=== PATIENT | male | born 1955 | race Caucasian/White ===

== ENCOUNTER 2018-06-30 07:31 | Inpatient (IN) ==
[2018-06-30] MEDS ORDERED: Sod Chloride 0.9% Inj 1,000 ML IV.SIG ONE (07:45)
[2018-06-30] MEDS ORDERED: Morphine Inj 4 MG/ML Vial IV.PUSH ONE (07:45)
--- NOTE | 2018-06-30 07:51 | ED ---
HPI General Chief Complaint: Abdominal Pain Stated Complaint: upper abd pain x 1 day Time Seen by Provider: 06/30/18 07:42 Source: patient Mode of arrival: ambulatory Limitations: no limitations History of Present Illness HPI narrative: Patient is a 63-year-old male with history of hypertension, hyperlipidemia as well as diabetes; presents to the emergency room with complaints of epigastric to right upper quadrant abdominal pain. Patient reports that pain began around 8 PM after he had had 2 whopper sandwiches for dinner. Reports that he has been feeling nauseous with no episodes of vomiting , no constipation or diarrhea. Patient reports that pain has been persistent and unrelenting, nothing makes pain better or worse. Patient with no fever or chills, no chest pain or shortness of breath. Patient reports that he has had abdominal surgeries in the past, reports history of colon resection for colon cancer MD complaint: abdominal pain Onset (ago): hour(s) Pain Consistency: constant Location: RUQ and epigastric Severity: moderate Severity scale (1-10): 6 Quality: cramping and aching Radiation: RUQ Migration to: RUQ Relieving factors: nothing Exacerbating factors: nothing Associated symptoms: nausea Related Data Home Medications Medication Instructions Recorded Confirmed aspirin [Aspirin Low Dose] 81 mg PO DAILY 06/30/18 06/30/18 empagliflozin [Jardiance] 25 mg PO DAILY 06/30/18 06/30/18 glimepiride 1 mg PO QAM 06/30/18 06/30/18 metformin 1 tab PO DAILY 06/30/18 06/30/18 rosuvastatin 10 mg PO DAILY 06/30/18 06/30/18 tamsulosin 0.4 mg PO DAILY 06/30/18 06/30/18 Allergies Allergy/AdvReac Type Severity Reaction Status Date / Time No Known Allergies Allergy Unverified 06/30/18 07:39 Review of Systems ROS: all other systems reviewed are negative [facility] Medical History Medical History Diabetes (Acute) History of colon cancer (Acute) Hypertension (Acute) Surgical History Surgical History History of colon resection (Acute) Social History Social History Substance History: No History of Abuse Second Hand Smoke Exposure: No Smoking Status: Never smoker How Often Do You Have a Drink Containing Alcohol: Never Recent Travel in [facility] within the Last 8 Weeks: No Recent Out of Country Travel within the Last 8 Weeks: No Exam Narrative Exam Narrative: GENERAL: Moderate distress SKIN: Focused skin assessment warm/dry. HEAD: Atraumatic. Normocephalic. EYES: Pupils equal and round. No scleral icterus. No injection or drainage. ENT: No nasal bleeding or discharge. Mucous membranes pink and moist. NECK: Trachea midline. No JVD. CARDIOVASCULAR: Regular rate and rhythm. No murmur appreciated. RESPIRATORY: No accessory muscle use. Clear to auscultation. Breath sounds equal bilaterally. GASTROINTESTINAL: Abdomen soft, tenderness to epigastrium to RUQ with no rebound or guarding, nondistended. Hepatic and splenic margins not palpable. MUSCULOSKELETAL: No obvious deformities. No clubbing. No cyanosis. No edema. NEUROLOGICAL: Awake and alert. No obvious cranial nerve deficits. Motor grossly within normal limits. Normal speech. PSYCHIATRIC: Appropriate mood and affect; insight and judgment normal. Course Initial Documented Vital Signs Temperature 97.6 F 06/30/18 07:36 Pulse Rate 81 06/30/18 07:36 Respiratory Rate 16 06/30/18 07:36 Blood Pressure 164/82 H 06/30/18 07:36 Pulse Oximetry 96 06/30/18 07:36 Last Documented Vital Signs Temperature 97.6 F 06/30/18 07:36 Pulse Rate 76 06/30/18 08:16 Respiratory Rate 16 06/30/18 07:36 Blood Pressure 164/82 H 06/30/18 07:36 Pulse Oximetry 98 06/30/18 08:16 Medical Decision Making MDM Narrative Medical decision making narrative: During the course of the patients emergency department visit, the patients history, examination, and differential diagnosis were reviewed with the patient. The patient was placed on a residential monitor with oximetry and frequent blood pressure monitoring. The patient had an IV access obtained and blood work sent for analysis. The patient was initially provided IVF, IV morphine as well as IV zofran RUQ US with no significant or acute abnormalities - patient is feeling better but is tired from taking morphine, ct of abdomen/pelvis ordered to further evaluate possible etiology of patient's abdominal pain. CT the abdomen and pelvis shows nonspecific distention of multiple mid small bowel loops and stool-like material within the distal distended segment. There are multiple air-fluid levels seen within the small bowel loops. There is a smoothly tapered transition zone within the distal small bowel but no abrupt transition point. Differential diagnosis includes early or partial obstruction. Patient still is uncomfortable while in the emergency room, he is in a lot of pain, I did reorder him another dose of morphine as the initial dose of morphine did seem to help him. Plan to admit him to the hospital for partial small bowel obstruction. Of note, patient's surgeon is Dr. Barakat, he performed the colon resection in [address] Wolfe who accepts pt to service Medical Screen Exam Complete: Yes Emergency Medical Condition: Yes Differential Diagnosis Differential Diagnosis: Pancreatitis, cholecystitis, GERD, ACS, electrolyte abnormality, gastritis, gastroenteritis, SBO, colitis Medical Records Medical records reviewed: Yes I reviewed the patient's medical records. Lab Data Lab results reviewed: Yes I reviewed the patient's lab results. Result diagrams: 06/30/18 08:02 06/30/18 08:02 Lab Results 06/30/18 06/30/18 06/30/18 Range/Units 08:02 08:02 08:02 CBC w Diff Auto diff final WBC 10.3 (4.0-11.0) th/mm3 RBC 5.77 (4.50-5.90) mil/mm3 Hgb 17.0 (13.0-17.0) gm/dL Hct 51.7 H (39.0-51.0) % MCV 89.6 (80.0-100.0) fL MCH 29.4 (27.0-34.0) pg MCHC 32.8 (32.0-36.0) % RDW 12.3 (11.6-17.2) % Plt Count 159 (150-450) th/mm3 MPV 8.9 (7.0-11.0) fL Neut % (Auto) 91.8 H (16.0-70.0) % Lymph % (Auto) 3.5 L (9.0-44.0) % Meigs % (Auto) 3.0 (0.0-8.0) % Eos % (Auto) 0.1 (0.0-4.0) % Baso % (Auto) 1.6 (0.0-2.0) % Neut # (Auto) 9.4 H (1.8-7.7) th/mm3 Lymph # (Auto) 0.4 L (1.0-4.8) th/mm3 Meigs # (Auto) 0.3 (0.0-0.9) th/mm3 Eos # (Auto) 0.0 (0.0-0.4) th/mm3 Baso # (Auto) 0.2 (0.0-0.2) th/mm3 WBC Differential . Differential Comment . PT 11.0 (9.8-11.6) sec INR 1.1 Ratio APTT 19.0 L (24.3-30.1) sec Sodium 141 (136-145) meq/L Potassium 4.3 (3.5-5.1) meq/L Chloride 104 (98-107) meq/L Carbon Dioxide 26.3 (21.0-32.0) meq/L Anion Gap 11 (5-15) meq/L BUN 29 H (7-18) mg/dL Creatinine 1.30 (0.60-1.30) mg/dL Estimated GFR 55 L (>89) mL/min Random Glucose 170 H (74-106) mg/dL Calcium 9.7 (8.5-10.1) mg/dL Total Bilirubin 0.7 (0.2-1.0) mg/dL AST 25 (15-37) U/L ALT 31 (12-78) U/L Alkaline Phosphatase 71 (45-117) U/L Total Protein 7.9 (6.4-8.2) g/dL Albumin 4.2 (3.4-5.0) g/dL Lipase 98 (73-393) U/L Ur Collection Type Urine Color (Yellw/Straw) Urine Clarity (Clear) Urine pH (5.0-8.5) Ur Specific [place] (1.002-1.035) Urine Protein (Neg-Trace) mg/dL Urine Glucose (UA) (Negative) mg/dL Urine Ketones (Negative) mg/dL Urine Occult Blood (Negative) Urine Nitrate (Negative) Urine Bilirubin (Negative) Urine Urobilinogen (Less than 2) mg/dL Ur Leukocyte Esterase (Negative) Urine RBC (0-3) /hpf Ur Squamous Epith Cells (0-5) /hpf Micro UA Comment Ur Microscopic Review Urine Culture Comments 06/30/18 Range/Units 10:45 CBC w Diff WBC (4.0-11.0) th/mm3 RBC (4.50-5.90) mil/mm3 Hgb (13.0-17.0) gm/dL Hct (39.0-51.0) % MCV (80.0-100.0) fL MCH (27.0-34.0) pg MCHC (32.0-36.0) % RDW (11.6-17.2) % Plt Count (150-450) th/mm3 MPV (7.0-11.0) fL Neut % (Auto) (16.0-70.0) % Lymph % (Auto) (9.0-44.0) % [place] % (Auto) (0.0-8.0) % Eos % (Auto) (0.0-4.0) % Baso % (Auto) (0.0-2.0) % Neut # (Auto) (1.8-7.7) th/mm3 Lymph # (Auto) (1.0-4.8) th/mm3 Meigs # (Auto) (0.0-0.9) th/mm3 Eos # (Auto) (0.0-0.4) th/mm3 Baso # (Auto) (0.0-0.2) th/mm3 WBC Differential Differential Comment PT (9.8-11.6) sec INR Ratio APTT (24.3-30.1) sec Sodium (136-145) meq/L Potassium (3.5-5.1) meq/L Chloride (98-107) meq/L Carbon Dioxide (21.0-32.0) meq/L Anion Gap (5-15) meq/L BUN (7-18) mg/dL Creatinine (0.60-1.30) mg/dL Estimated GFR (>89) mL/min Random Glucose (74-106) mg/dL Calcium (8.5-10.1) mg/dL Total Bilirubin (0.2-1.0) mg/dL AST (15-37) U/L ALT (12-78) U/L Alkaline Phosphatase (45-117) U/L Total Protein (6.4-8.2) g/dL Albumin (3.4-5.0) g/dL Lipase (73-393) U/L Ur Collection Type Clean catch Urine Color Yellow (Yellw/Straw) Urine Clarity Clear (Clear) Urine pH 5.5 (5.0-8.5) Ur Specific [place] 1.020 (1.002-1.035) Urine Protein Trace (Neg-Trace) mg/dL Urine Glucose (UA) 1000 or greater H (Negative) mg/dL Urine Ketones 40 H (Negative) mg/dL Urine Occult Blood Negative (Negative) Urine Nitrate Negative (Negative) Urine Bilirubin Negative (Negative) Urine Urobilinogen 0.2 (Less than 2) mg/dL Ur Leukocyte Esterase Negative (Negative) Urine RBC 0-3 (0-3) /hpf Ur Squamous Epith Cells 0-5 (0-5) /hpf Micro UA Comment Culture not ind Ur Microscopic Review Microscopic reviewed Urine Culture Comments Culture not ind Imaging Data Attestation: I personally reviewed and interpreted this imaging study as follows : Radiologist's impression: Chest X-Ray 06/30/18 07:45 CONCLUSION: COPD Left upper lobe density characteristic of calcification along the first rib. No evidence of acute airspace disease. Gallbladder Ultrasound 06/30/18 07:45 CONCLUSION: No significant or acute abnormality identified. Abdomen/Pelvis CT 06/30/18 09:46 CONCLUSION: 1. Nonspecific distention of multiple mid small bowel loops and stool-like material within the distal distended segment. Multiple air-fluid levels also seen within the distended small bowel loops. There is a smoothly tapered transition zone with the distal small bowel but no abrupt transition point. Differential diagnosis includes partial or early obstruction. 2. Atherosclerotic disease of the aorta. 3. Small amount of free fluid in the pelvis. ECG Data EKG Prior to Arrival: No Attestation: I personally reviewed and interpreted this ECG as follows: Interpretation: EKG at 0807: NSR at 77bpm, qt/qtc: 361/393, no acute st or t wave changes Discharge Plan Discharge Disposition Patient Disposition: 30 Still Patient Discharge Condition Condition: Fair Discharge Details Diagnosis: Small bowel obstruction Physicians Team ED Provider: Radha Pinzon Primary Care Provider: Torrey Huitron Rxs /Orders / Referrals /Forms Prescriptions: No Action aspirin [Aspirin Low Dose] 81 mg Tablet,Delayed Release (Dr/Ec) 81 mg PO DAILY RF: 0 glimepiride 1 mg Tablet 1 mg PO QAM RF: 0 tamsulosin 0.4 mg Capsule,Extended Release 24hr 0.4 mg PO DAILY RF: 0 metformin 1,000 mg Tablet 1 tab PO DAILY RF: 0 rosuvastatin 10 mg Tablet 10 mg PO DAILY RF: 0 empagliflozin [Jardiance] 25 mg Tablet 25 mg PO DAILY RF: 0 Status ED Status: Admitted Patient
[2018-06-30 08:26] LABS: Baso # (Auto) 0.2 th/mm3 (0.0-0.2); Baso % (Auto) 1.6 % (0.0-2.0); Eos % (Auto) 0.1 % (0.0-4.0); Hematocrit 51.7 % (39.0-51.0); Lymph # (Auto) 0.4 th/mm3 (1.0-4.8); Lymph % (Auto) 3.5 % (9.0-44.0); Mean Corpuscular HGB Conc 32.8 % (32.0-36.0); Mean Corpuscular Hemoglobin 29.4 pg (27.0-34.0); Mean Corpuscular Volume 89.6 fL (80.0-100.0); Mean Platelet Volume 8.9 fL (7.0-11.0); Mono # (Auto) 0.3 th/mm3 (0.0-0.9); Neut # (Auto) 9.4 th/mm3 (1.8-7.7); Neut % (Auto) 91.8 % (16.0-70.0); Platelet Count 159 th/mm3 (150-450); Red Blood Count 5.77 mil/mm3 (4.50-5.90); Red Cell Distribution Width 12.3 % (11.6-17.2); White Blood Count 10.3 th/mm3 (4.0-11.0)
--- NOTE | 2018-06-30 08:26 | XR ---
EXAM DATE: 06/30/2018 8:20 AM EDT AGE/SEX: 63 years / Male INDICATIONS: Right upper abdominal pain CLINICAL DATA: This is the patient's initial encounter. Patient reports that signs and symptoms have been present for 1 day and indicates a pain score of 10/10. MEDICAL/SURGICAL HISTORY: Diabetes. Hypertension. Carcinoma, colon. Colon resection. [place] [facility] [place]. . FINDINGS: Linear hyperdensity in the left upper lung field appears represent calcification along the inferior m argin of the first rib. Lungs are hyperinflated but otherwise clear. Central interstitial prominence is noted. Heart and mediastinal structures are stable. CONCLUSION: COPD Left upper lobe density characteristic of calcification along the first rib. No evidence of acute airspace disease. Electronically signed by: Perry Shannon MD 06/30/2018 8:25 AM EDT
[2018-06-30 08:31] LABS: Chloride 104 meq/L (98-107); Potassium 4.3 meq/L (3.5-5.1); Sodium 141 meq/L (136-145)
[2018-06-30 08:34] LABS: Calcium 9.7 mg/dL (8.5-10.1)
[2018-06-30 08:35] LABS: Albumin 4.2 g/dL (3.4-5.0); Anion Gap 11 meq/L (5-15); Blood Urea Nitrogen 29 mg/dL (7-18); Carbon Dioxide 26.3 meq/L (21.0-32.0); Glucose,Random 170 mg/dL (74-106); Lipase 98 U/L (73-393)
[2018-06-30 08:38] LABS: Alanine Aminotransferase 31 U/L (12-78); Aspartate Aminotransferase 25 U/L (15-37); Glomerular Filtration Rate 55 mL/min (>89)
[2018-06-30 08:39] LABS: Total Protein 7.9 g/dL (6.4-8.2)
[2018-06-30 08:40] LABS: Alkaline Phosphatase 71 U/L (45-117)
[2018-06-30 08:41] LABS: INR 1.1 Ratio
--- NOTE | 2018-06-30 09:19 | US ---
EXAM DATE: 06/30/2018 9:04 AM EDT AGE/SEX: 63 years / Male INDICATIONS: Right upper quadrant pain. CLINICAL DATA: This is the patient's initial encounter. Patient reports that signs and symptoms have been present for 1 day and indicates a pain score of 4/10. MEDICAL/SURGICAL HISTORY: Hypertension. Colon cancer. Diabetes. . Colon resection. COMPARISON: No prior exams available for comparison. MEASUREMENTS: Liver:__ 13.2 cm. Common Bile Duct:__ 3mm. FINDINGS: Liver: Normal echotexture without focal lesion or ductal dilatation. Portal Vein: Hepatopedal flow seen in portal vein. Common Duct: No intraluminal mass or stone visualized. Gallbladder: Demonstrates no wall thickening or pericholecystic fluid. No stones visualized. Pancreas: The visualized portions are within normal limits Right Kidney: Normal echotexture and cortical thickness. No mass or hydronephrosis. Other: CONCLUSION: No significant or acute abnormality identified. Electronically signed by: Perry Shannon MD 06/30/2018 9:18 AM EDT
--- NOTE | 2018-06-30 10:38 | CT ---
EXAM DATE: 06/30/2018 10:21 AM EDT AGE/SEX: 63 years / Male INDICATIONS: Epigastric and right upper quadrant pain. Nausea. CLINICAL DATA: This is the patient's initial encounter. Patient reports that signs and symptoms have been present for 1 day and indicates a pain score of 6/10. MEDICAL/SURGICAL HISTORY: Diabetes. Carcinoma, colon. Hypertension. Colon resection. ORAL CONTRAST: No oral contrast ingested. RADIATION DOSE: 8.61 CTDI (mGy) COMPARISON: No prior exams available for comparison. TECHNIQUE: Multiple contiguous axial images were obtained through the abdomen and pelvis following b olus infusion of 90 ml Omnipaque 350 (iohexol) nonionic water-soluble contrast as a single exam dos e. No oral contrast ingested. Using automated exposure control and adjustment of the mA and/or kV ac cording to patient size, radiation dose was kept as low as reasonably achievable to obtain optimal di agnostic quality images. DICOM format image data is available electronically for review and comparis on. FINDINGS: Lower Lungs: Mild atelectasis at lung bases. Liver: The liver has a homogeneous density without space-occupying lesion. There is no dilation of th e biliary tree. Spleen: Homogeneous density without enlargement. Pancreas: Unremarkable without mass or calcification. Kidneys: Normal in size and shape. No evidence of mass or hydronephrosis. Adrenal Glands: Unremarkable. Aorta: Aortic calcification noted. Diameter within normal limits. Bowel/Mesentery: Moderate distention of multiple loops of mid small bowel measuring up to 3.6 cm in diameter. Air-fluid levels are seen within the distended loops. There is relative narrowing of diamet er of a segment of small bowel just distal to the distended loops but no abrupt transition point is s een. There is stool-like material within the distal portion of the distended small bowel segment. Dis nia small bowel loops are decompressed. Colon is decompressed. Stool and gas scattered in the colon. Postsurgical changes of the cecum. Small amount of free fluid in the dependent portion of the pelvis. No evidence of free air. Abdominal Wall: Intact. Retroperitoneum: No evidence of adenopathy in the retrocrural, para-aortic, or deep pelvic regions. Bladder: Contours are smooth. Reproductive Organs: No abnormal masses or calcifications seen. Inguinal: The inguinal region is unremarkable without evidence of adenopathy. Bony Structures: Unremarkable. CONCLUSION: 1. Nonspecific distention of multiple mid small bowel loops and stool-like material within the dista l distended segment. Multiple air-fluid levels also seen within the distended small bowel loops. Ther e is a smoothly tapered transition zone with the distal small bowel but no abrupt transition point. D ifferential diagnosis includes partial or early obstruction. 2. Atherosclerotic disease of the aorta. 3. Small amount of free fluid in the pelvis. Electronically signed by: Hema Bledsoe MD 06/30/2018 10:36 AM EDT
[2018-06-30] MEDS ORDERED: Morphine Sulfate Inj 2 MG/ML Vial IV.PUSH ONE (10:39)
[2018-06-30 10:55] LABS: Bilirubin,Urine Negative (Negative); Clarity,Urine Clear (Clear); Color,Urine Yellow (Yellw/Straw); Leukocyte Esterase,Urine Negative (Negative); Nitrite,Urine Negative (Negative); PH,Urine 5.5 (5.0-8.5); Urobilinogen,Urine 0.2 mg/dL (Less than 2)
[2018-06-30 11:03] LABS: RBC,Urine 0-3 /hpf (0-3)
[2018-06-30 11:04] LABS: Squamous Epithelial Cell,Urine 0-5 /hpf (0-5)
--- NOTE | 2018-06-30 11:47 | P.HP ---
History of Present Illness Service: [facility] Primary Care Physician: Torrey Huitron MD, PhD Chief Complaint: Right upper right upper quadrant abdominal pain since 2 AM History of Present Illness: Patient is a 63-year-old male with history of hypertension, hyperlipidemia as well as diabetes; presents to the emergency room with complaints of epigastric to right upper quadrant abdominal pain. Patient reports that pain began around 8 PM after he had had 2 whopper sandwiches for dinner. Reports that he has been feeling nauseous with no episodes of vomiting, no constipation or diarrhea. Patient reports that pain has been persistent and unrelenting, nothing makes pain better or worse. Patient with no fever or chills, no chest pain or shortness of breath. CAT scan of the abdomen shows multiple air-fluid levels in the small bowel, patient reports that he has had abdominal surgeries in the past, reports history of colon resection for colon cancer. Patient does carry a history of CA of the colon adenocarcinoma had a partial right colectomy in 2010, also has a history of chronic hep C has been treated in the past and is cured he has had sinus surgery in 2013. Will admit the patient at this time with bowel rest IV fluid and pain medications. And as he will be n.p.o. we will use sliding scale coverage for his diabetes. - Diagnosis (1) Partial small bowel obstruction (2) Abdominal pain (3) Diabetes Review of Systems All other systems reviewed negative except as stated in HPI PMFSH - History History Provided By: Patient - Medical History Medical History: Medical History (Last Updated 06/30/18 @ 08:17 by Chichi Mcdowell RN) Diabetes History of colon cancer Hypertension - Surgical History Surgical History: Surgical History (Last Updated 06/30/18 @ 08:17 by Chichi Mcdowell RN) History of colon resection - Tobacco History Second Hand Smoke Exposure: No Smoking Status: Never smoker - Alcohol History How Often Do You Have a Drink Containing Alcohol: Never - Substance Use History Substance History: No History of Abuse - Travel History Recent Travel in the [place] Within the Last 8 Weeks: No Recent Travel Out of the Country Within the Last 8 Weeks: No - Immunization History Tetanus Immunization: Unsure Hx Influenza Vaccine This Season: Yes Medications and Allergies Active Medications: Active Medications Aspirin (Ecotrin) 81 mg PO DAILY GEORGE Sodium Chloride (Ns Flush) 2 ml IV.FLUSH PRN PRN PRN Reason: FLUSH AFTER USING IV ACCESS Last Admin: 06/30/18 10:44 Dose: 2 ml Tamsulosin HCl (Flomax) 0.4 mg PO DAILY GEORGE Allergies Allergy/AdvReac Type Severity Reaction Status Date / Time No Known Allergies Allergy Unverified 06/30/18 07:39 Home Medications Medication Instructions Recorded Confirmed Type aspirin [Aspirin Low Dose] 81 mg PO DAILY 06/30/18 06/30/18 History empagliflozin [Jardiance] 25 mg PO DAILY 06/30/18 06/30/18 History glimepiride 1 mg PO QAM 06/30/18 06/30/18 History metformin 1 tab PO DAILY 06/30/18 06/30/18 History rosuvastatin 10 mg PO DAILY 06/30/18 06/30/18 History tamsulosin 0.4 mg PO DAILY 06/30/18 06/30/18 History Exam Vital signs: Vital Signs 06/30/18 07:36 06/30/18 08:16 Temperature 97.6 F Pulse Rate 81 76 Respiratory Rate 16 Blood Pressure 164/82 H Pulse Oximetry 96 98 Intake & Output 06/29/18 06/30/18 06/30/18 18:59 06:59 18:59 Intake Total 1000 / 1000 Balance 1000 / 1000 Weight 81.4 kg Intake: IV 1000 / 1000 NS Inj 1,000 ML @ Wide Open IV. 1000 / 1000 SIG BOLUS ONE Rx#:[id number] Narrative: GENERAL: SKIN: Warm and dry. HEAD: Normocephalic. EYES: No scleral icterus. No injection or drainage. NECK: Supple, trachea midline. No JVD or lymphadenopathy. CARDIOVASCULAR: Regular rate and rhythm without murmurs, gallops, or rubs. RESPIRATORY: Breath sounds equal bilaterally. No accessory muscle use. GASTROINTESTINAL: Abdomen rt upper quadrant tenderness no rebound . MUSCULOSKELETAL: No cyanosis, or edema. BACK: Nontender without obvious deformity. No CVA tenderness. Results - Labs CBC & Chem 7: 06/30/18 08:02 06/30/18 08:02 Labs: Laboratory Results - last 24 hr 06/30/18 06/30/18 06/30/18 08:02 08:02 08:02 CBC w Diff Auto diff final WBC 10.3 RBC 5.77 Hgb 17.0 Hct 51.7 H MCV 89.6 MCH 29.4 MCHC 32.8 RDW 12.3 Plt Count 159 MPV 8.9 Neut % (Auto) 91.8 H Lymph % (Auto) 3.5 L [place] % (Auto) 3.0 Eos % (Auto) 0.1 Baso % (Auto) 1.6 Neut # (Auto) 9.4 H Lymph # (Auto) 0.4 L [place] # (Auto) 0.3 Eos # (Auto) 0.0 Baso # (Auto) 0.2 WBC Differential . Differential Comment . PT 11.0 INR 1.1 APTT 19.0 L Sodium 141 Potassium 4.3 Chloride 104 Carbon Dioxide 26.3 Anion Gap 11 BUN 29 H Creatinine 1.30 Estimated GFR 55 L Random Glucose 170 H Calcium 9.7 Total Bilirubin 0.7 AST 25 ALT 31 Alkaline Phosphatase 71 Total Protein 7.9 Albumin 4.2 Lipase 98 Ur Collection Type Urine Color Urine Clarity Urine pH Ur Specific [place] Urine Protein Urine Glucose (UA) Urine Ketones Urine Occult Blood Urine Nitrate Urine Bilirubin Urine Urobilinogen Ur Leukocyte Esterase Urine RBC Ur Squamous Epith Cells Micro UA Comment Ur Microscopic Review Urine Culture Comments 06/30/18 10:45 CBC w Diff WBC RBC Hgb Hct MCV MCH MCHC RDW Plt Count MPV Neut % (Auto) Lymph % (Auto) [place] % (Auto) Eos % (Auto) Baso % (Auto) Neut # (Auto) Lymph # (Auto) [place] # (Auto) Eos # (Auto) Baso # (Auto) WBC Differential Differential Comment PT INR APTT Sodium Potassium Chloride Carbon Dioxide Anion Gap BUN Creatinine Estimated GFR Random Glucose Calcium Total Bilirubin AST ALT Alkaline Phosphatase Total Protein Albumin Lipase Ur Collection Type Clean catch Urine Color Yellow Urine Clarity Clear Urine pH 5.5 Ur Specific [place] 1.020 Urine Protein Trace Urine Glucose (UA) 1000 or greater H Urine Ketones 40 H Urine Occult Blood Negative Urine Nitrate Negative Urine Bilirubin Negative Urine Urobilinogen 0.2 Ur Leukocyte Esterase Negative Urine RBC 0-3 Ur Squamous Epith Cells 0-5 Micro UA Comment Culture not ind Ur Microscopic Review Microscopic reviewed Urine Culture Comments Culture not ind - Imaging Impressions Chest X-Ray 06/30/18 07:45 CONCLUSION: COPD Left upper lobe density characteristic of calcification along the first rib. No evidence of acute airspace disease. Gallbladder Ultrasound 06/30/18 07:45 CONCLUSION: No significant or acute abnormality identified. Abdomen/Pelvis CT 06/30/18 09:46 CONCLUSION: 1. Nonspecific distention of multiple mid small bowel loops and stool-like material within the distal distended segment. Multiple air-fluid levels also seen within the distended small bowel loops. There is a smoothly tapered transition zone with the distal small bowel but no abrupt transition point. Differential diagnosis includes partial or early obstruction. 2. Atherosclerotic disease of the aorta. 3. Small amount of free fluid in the pelvis. Caprini VTE Risk Assessment Caprini VTE Risk Assessment: No/Low Risk (score <= 1) Caprini Risk Assessment Model: Point Value = 1 Point Value = 2 Point Value = 3 Point Value = 5 Age 41-60 Minor surgery BMI > 25 kg/m2 Swollen legs Varicose veins or History of unexplained or recurrent spontaneous Oral contraceptives or hormone replacement Sepsis (< 1 month) Serious lung disease, including pneumonia (< 1 month) Abnormal pulmonary function Acute myocardial infarction Congestive heart failure (< 1 month) History of inflammatory bowel disease Medical patient at bed rest Age 61-74 Arthroscopic surgery Major open surgery (> 45 min) Laparoscopic surgery (> 45 min) Malignancy Confined to bed (> 72 hours) Immobilizing plaster cast Central venous access Age >= 75 History of VTE Family history of VTE Factor V Leiden Prothrombin [id number] Lupus anticoagulant Anticardiolipin antibodies Elevated serum homocysteine Heparin-induced thrombocytopenia Other congenital or acquired thrombophilia Stroke (< 1 month) Elective arthroplasty Hip, pelvis, or leg fracture Acute spinal cord injury (< 1 month) Prophylaxis Regimen: Total Risk Factor Score Risk Level Prophylaxis Regimen 0-1 Low Early ambulation 2 Moderate Order ONE of the following: *Sequential Compression Device (SCD) *Heparin 5000 units SQ BID 3-4 Higher Order ONE of the following medications: *Heparin 5000 units SQ TID *Enoxaparin/Lovenox 40 mg SQ daily (WT < 150 kg, CrCl > 30 mL/min) *Enoxaparin/Lovenox 30 mg SQ daily (WT < 150 kg, CrCl > 10-29 mL/min) *Enoxaparin/Lovenox 30 mg SQ BID (WT < 150 kg, CrCl > 30 mL/min) AND/OR *Sequential Compression Device (SCD) 5 or more Highest Order ONE of the following medications: *Heparin 5000 units SQ TID (Preferred with Epidurals) *Enoxaparin/Lovenox 40 mg SQ daily (WT < 150 kg, CrCl > 30 mL/min) *Enoxaparin/Lovenox 30 mg SQ daily (WT < 150 kg, CrCl > 10-29 mL/min) *Enoxaparin/Lovenox 30 mg SQ BID (WT < 150 kg, CrCl > 30 mL/min) AND *Sequential Compression Device (SCD) Assessment and Plan - Assessment (1) Partial small bowel obstruction Code(s): K56.600 - Partial intestinal obstruction, unspecified as to cause Status: Acute Plan: CT shows partial small bowel obstruction ,IV fluid pain meds (2) Abdominal pain Code(s): R10.9 - Unspecified abdominal pain Status: Acute Plan: CT scan shows partial small bowel obstruction-will give IV fluids ,pain control recheck xray AM will discuss with surgery (3) Diabetes Code(s): E11.9 - Type 2 diabetes mellitus without complications Status: Acute Plan: sliding scale with coverage - Plan further plan as case develops Code Status: Full Discussed Condition With: Patient (2) Abdominal pain Qualifiers: Abdominal location: right upper quadrant Qualified Code(s): R10.11 - Right upper quadrant pain
[2018-06-30] MEDS ORDERED: Bisacodyl 10 MG Supp RECTAL PRN (11:48)
[2018-06-30] MEDS ORDERED: HYDROmorphone PF Inj 0.5 MG/0.5 ML Syringe IV.PUSH PRN (11:51)
[2018-06-30] MEDS ORDERED: Dextrose 50% in Water 50 ML Vial IV.PUSH PRN (11:58)
--- NOTE | 2018-06-30 12:10 | P.PNADD ---
Addendum to Inpatient Note Reason for Addendum: Additional Documentation (Discussed the case with Dr. Soriano general surgery who looked at the CT scan of the abdomen and shows some dilation to the stomach area as well and he would like NG tube placed and suggest transfer to the main in case surgery is required)
[2018-06-30] MEDS: Sodium Chloride 0.45 % Inj 1,000 ML IV.CONT SCH (13:38)
[2018-06-30] MEDS ORDERED: HYDROmorphone PF Inj 2 MG/ML Vial IV.PUSH PRN (21:20)
[2018-06-30] MEDS: Insulin NovoLOG Aspart Correctional Sugar Inj SQ SCH (21:27)
[2018-07-01] MEDS: Insulin NovoLOG Aspart Correctional Sugar Inj SQ SCH ×4 (00:59→19:09)
[2018-07-01] MEDS: Sodium Chloride 0.45 % Inj 1,000 ML IV.CONT SCH ×2 (05:23→18:25)
--- NOTE | 2018-07-01 09:39 | P.CONGS ---
[facility] Gen Surgery Consult Note Consult date: 07/01/18 Narrative: 63-year-old male with history of right colectomy by Dr. Kyle in 2010 presents with severe upper abdominal pain and nausea yesterday. He had eaten 2 Whoppers and almost an entire jar of peanuts. He felt like he needed to vomit but could not. An NG tube was placed last night and the output does not seem to be recorded but he states there was a lot of output. He feels significantly better this morning. He has had a small amount of flatus this morning. He denies abdominal pain. Review of Systems All other systems reviewed negative except as stated in [facility] - History History Provided By: Patient - Medical History Medical History: Medical History (Last Updated 06/30/18 @ 08:17 by Chichi Mcdowell RN) Diabetes History of colon cancer Hypertension - Surgical History Surgical History: Surgical History (Last Updated 06/30/18 @ 08:17 by Chichi Mcdowell RN) History of colon resection - Tobacco History Second Hand Smoke Exposure: No Tobacco Use In Past 30 Days: No Smoking Status: Former smoker Tobacco Type: Cigarettes - Alcohol History How Often Do You Have a Drink Containing Alcohol: Never - Substance Use History Substance History: No History of Abuse - Travel History Recent Travel in the [place] Within the Last 8 Weeks: No Recent Travel Out of the Country Within the Last 8 Weeks: No - Immunization History Tetanus Immunization: Unsure Hx Influenza Vaccine This Season: Yes Medications and Allergies Active Medications: Active Medications Aspirin (Ecotrin) 81 mg PO DAILY GEORGE Bisacodyl (Dulcolax Supp) 10 mg RECTAL DAILY PRN PRN Reason: SEVERE CONSITIPATION Dextrose (D50w Vial) 50 ml IV.PUSH UNSCH PRN PRN Reason: PER HYPOGLYCEMIA PROTOCOL Glucagon (Glucagon Inj) 1 mg OTHER PRN PRN PRN Reason: for Hypoglycemia Protocol Hydromorphone HCl (Dilaudid Pf Inj) 0.5 mg IV.PUSH Q4H PRN PRN Reason: PAIN SCALE 6 TO 10 Last Admin: 06/30/18 21:27 Dose: 0.5 mg Sodium Chloride (1/2 Normal Saline Inj) 1,000 mls @ 75 mls/hr IV.CONT .[id number] GEORGE Last Admin: 07/01/18 05:23 Dose: Not Given Insulin Aspart (Novolog Insulin Correctional Sugar Inj) 0 unit SQ Q6HR PENDING SALE TO [facility]; Protocol Last Admin: 07/01/18 05:50 Dose: Not Given Ondansetron HCl (Zofran Inj) 4 mg IV.PUSH Q6H PRN PRN Reason: NAUSEA OR VOMITING Sennosides (Senokot) 17.2 mg PO Q12H PRN PRN Reason: Moderate Constipation Sodium Chloride (Ns Flush) 2 ml IV.FLUSH PRN PRN PRN Reason: FLUSH AFTER USING IV ACCESS Last Admin: 06/30/18 10:44 Dose: 2 ml Tamsulosin HCl (Flomax) 0.4 mg PO DAILY PENDING SALE TO [facility] Allergies Allergy/AdvReac Type Severity Reaction Status Date / Time No Known Allergies Allergy Unverified 06/30/18 07:39 Home Medications Medication Instructions Recorded Confirmed Type aspirin [Aspirin Low Dose] 81 mg PO DAILY 06/30/18 06/30/18 History empagliflozin [Jardiance] 25 mg PO DAILY 06/30/18 06/30/18 History glimepiride 1 mg PO QAM 06/30/18 06/30/18 History metformin 1 tab PO DAILY 06/30/18 06/30/18 History rosuvastatin 10 mg PO DAILY 06/30/18 06/30/18 History tamsulosin 0.4 mg PO DAILY 06/30/18 06/30/18 History Exam Vital signs: Vital Signs 06/30/18 13:33 06/30/18 16:00 06/30/18 20:00 Temperature 97.8 F 98.1 F Pulse Rate 94 H 92 H 93 H Respiratory Rate 16 18 17 Blood Pressure 155/82 H 162/81 H 149/75 H Pulse Oximetry 95 94 L 94 L 07/01/18 00:00 07/01/18 08:00 Temperature 97.7 F 97.6 F Pulse Rate 89 80 Respiratory Rate 17 18 Blood Pressure 134/73 159/85 H Pulse Oximetry 94 L 95 Intake & Output 06/30/18 07/01/18 07/01/18 18:59 06:59 18:59 Intake Total 1000 / 1000 1000 / 1000 Balance 1000 / 1000 1000 / 1000 Weight 81.4 kg 77.4 kg Intake: IV 1000 / 1000 1000 / 1000 1/2 Normal Saline Inj 1,000 ML 1000 / 1000 @ 75 mls/hr IV.CONT .[id number] PENDING SALE TO [facility] Rx#:[id number] NS Inj 1,000 ML @ Wide Open IV. 1000 / 1000 SIG BOLUS ONE Rx#:[id number] Oral 0 / 0 0 / 0 Other: # Voids 3 Narrative: GENERAL: Awake and alert. No acute distress. Cooperative. HEAD: Normocephalic. Atraumatic. EYES: Pupils equal round and reactive to light bilaterally. No scleral icterus. ENT: Moist oral mucosa. NECK: Trachea midline. CHEST: Nonlabored breathing. No respiratory distress. CARDIOVASCULAR: Regular rate and rhythm. ABDOMEN: Mild distention. Well-healed right upper abdominal transverse scar. Nontender and soft. EXTREMITIES: No cyanosis or edema. SKIN: Warm, dry, nonjaundiced. Results - Labs 06/30/18 08:02 06/30/18 08:02 Abnormal lab results 06/30/18 06/30/18 06/30/18 Range/Units 10:45 12:54 18:46 POC Glucose 179 H 136 H (68-110) mg/dl Urine Glucose (UA) 1000 or greater H (Negative) mg/dL Urine Ketones 40 H (Negative) mg/dL 07/01/18 07/01/18 Range/Units 00:38 05:41 POC Glucose 140 H 117 H (68-110) mg/dl Urine Glucose (UA) (Negative) mg/dL Urine Ketones (Negative) mg/dL All other labs normal. - Imaging CT scan - abdomen: report reviewed, image reviewed CT scan - pelvis: report reviewed, image reviewed Assessment and Plan - Assessment (1) Small bowel obstruction Code(s): K56.609 - Unspecified intestinal obstruction, unspecified as to partial versus complete obstruction Status: Acute - Plan Small bowel obstruction possibly related to his diet and peanuts yesterday. On CT scan it does appear high-grade. He has started to pass some flatus. The NG tube accidentally came out. I will try him on sips of clear liquids as well as sips of magnesium citrate to help with possible peanut impaction in the small bowel.
[2018-07-01] MEDS ORDERED: Magnesium Citrate Liq 300 ML Bottle PO ONE (10:00)
[2018-07-01 10:23] LABS: Baso % (Auto) 0.6 % (0.0-2.0); Eos # (Auto) 0.1 th/mm3 (0.0-0.4); Eos % (Auto) 1.3 % (0.0-4.0); Hematocrit 48.2 % (39.0-51.0); Hemoglobin 15.9 gm/dL (13.0-17.0); Lymph # (Auto) 0.7 th/mm3 (1.0-4.8); Lymph % (Auto) 7.4 % (9.0-44.0); Mean Corpuscular HGB Conc 32.9 % (32.0-36.0); Mean Corpuscular Hemoglobin 30.3 pg (27.0-34.0); Mean Corpuscular Volume 91.9 fL (80.0-100.0); Mean Platelet Volume 9.1 fL (7.0-11.0); Mono # (Auto) 1.3 th/mm3 (0.0-0.9); Mono % (Auto) 14.7 % (0.0-8.0); Neut # (Auto) 6.7 th/mm3 (1.8-7.7); Platelet Count 159 th/mm3 (150-450); Red Blood Count 5.24 mil/mm3 (4.50-5.90); Red Cell Distribution Width 13.9 % (11.6-17.2); White Blood Count 8.8 th/mm3 (4.0-11.0)
--- NOTE | 2018-07-01 10:25 | XR ---
EXAM DATE: 07/01/2018 10:14 AM EDT AGE/SEX: 63 years / Male INDICATIONS: Obstruction. CLINICAL DATA: This is the patient's initial encounter. Patient reports that signs and symptoms have been present for 1 week and indicates a pain score of 0/10. MEDICAL/SURGICAL HISTORY: . Diabetes. Hypertension. Carcinoma, colon . Colon resection. COMPARISON: [facility], CT ABDOMEN & PELVIS W CONTRAST, 06/30/2018. . FINDINGS: The abdominal bowel gas pattern is normal. No abnormal masses, calcifications, or organomegaly is s een. The osseous structures are unremarkable. CONCLUSION: Negative examination. Electronically signed by: Jay Salazar MD 07/01/2018 10:23 AM EDT
--- NOTE | 2018-07-01 13:03 | P.PNIM ---
Subjective Interval history: Follow up: partial small bowel obstruction Patient reports abd pain improved passing small amount of flatus Physical Exam Vital signs: Vital Signs 06/30/18 13:33 06/30/18 16:00 06/30/18 20:00 Temperature 97.8 F 98.1 F Pulse Rate 94 H 92 H 93 H Respiratory Rate 16 18 17 Blood Pressure 155/82 H 162/81 H 149/75 H Pulse Oximetry 95 94 L 94 L 07/01/18 00:00 07/01/18 08:00 07/01/18 12:00 Temperature 97.7 F 97.6 F 97.5 F L Pulse Rate 89 80 76 Respiratory Rate 17 18 17 Blood Pressure 134/73 159/85 H 155/75 H Pulse Oximetry 94 L 95 95 Intake & Output 06/30/18 07/01/18 07/01/18 18:59 06:59 18:59 Intake Total 1000 / 1000 1000 / 1000 Balance 1000 / 1000 1000 / 1000 Weight 81.4 kg 77.4 kg Intake: IV 1000 / 1000 1000 / 1000 1/2 Normal Saline Inj 1,000 ML 1000 / 1000 @ 75 mls/hr IV.CONT .[id number] GEORGE Rx#:[id number] NS Inj 1,000 ML @ Wide Open IV. 1000 / 1000 SIG BOLUS ONE Rx#:[id number] Oral 0 / 0 0 / 0 Other: # Voids 3 Narrative: SKIN: Warm and dry. HEAD: Normocephalic. EYES: No scleral icterus. No injection or drainage. NECK: Supple, trachea midline. No JVD or lymphadenopathy. CARDIOVASCULAR: Regular rate and rhythm without murmurs, gallops, or rubs. RESPIRATORY: Breath sounds equal bilaterally. No accessory muscle use. GASTROINTESTINAL: Abdomen rt upper quadrant tenderness no rebound . MUSCULOSKELETAL: No cyanosis, or edema. BACK: Nontender without obvious deformity. No CVA tenderness. Results - Labs CBC & Chem 7: 07/01/18 10:00 06/30/18 08:02 Laboratory Results - last 24 hr 06/30/18 07/01/18 07/01/18 18:46 00:38 05:41 WBC RBC Hgb Hct MCV MCH MCHC RDW Plt Count MPV Neut % (Auto) Lymph % (Auto) [place] % (Auto) Eos % (Auto) Baso % (Auto) Neut # (Auto) Lymph # (Auto) [place] # (Auto) Eos # (Auto) Baso # (Auto) WBC Differential Differential Comment POC Glucose 136 H 140 H 117 H 07/01/18 07/01/18 10:00 12:45 WBC 8.8 RBC 5.24 Hgb 15.9 Hct 48.2 MCV 91.9 MCH 30.3 MCHC 32.9 RDW 13.9 Plt Count 159 MPV 9.1 Neut % (Auto) 76.0 H Lymph % (Auto) 7.4 L [place] % (Auto) 14.7 H Eos % (Auto) 1.3 Baso % (Auto) 0.6 Neut # (Auto) 6.7 Lymph # (Auto) 0.7 L [place] # (Auto) 1.3 H Eos # (Auto) 0.1 Baso # (Auto) 0.0 WBC Differential . Differential Comment Auto diff final POC Glucose 95 - Imaging Impressions Abdomen X-Ray 07/01/18 00:00 CONCLUSION: Negative examination. Assessment and Plan - Assessment (1) Small bowel obstruction Code(s): K56.609 - Unspecified intestinal obstruction, unspecified as to partial versus complete obstruction Status: Acute Plan: Patient is a 63-year-old male with history of hypertension, hyperlipidemia as well as diabetes; presents to the emergency room with complaints of epigastric to right upper quadrant abdominal pain. Patient reports that pain began around 8 PM after he had had 2 whopper sandwiches and nearly a whole jar of peanuts for dinner. Reported that he has been feeling nauseous with no episodes of vomiting Partial small bowel obstruction CT shows partial small bowel obstruction Abdomen/Pelvis CT 06/30/18 1. Nonspecific distention of multiple mid small bowel loops and stool-like material within the distal distended segment. Multiple air-fluid levels also seen within the distended small bowel loops. There is a smoothly tapered transition zone with the distal small bowel but no abrupt transition point. Differential diagnosis includes partial or early obstruction. 2. Atherosclerotic disease of the aorta. 3. Small amount of free fluid in the pelvis. IV fluid pain meds General surgery, appreciate input. per surgery (07/01) sips of clear liquids as well as sips of magnesium citrate to help with possible peanut impaction in the small bowel. Abdominal pain CT scan shows partial small bowel obstruction-will give IV fluids ,pain control recheck xray Abdomen X-Ray 07/01/18 Negative examination. Diabetes sliding scale with coverage - Attending Attestation Patient examined. Assessment and plan formulated with Smiley Farooq PA-C. I agree with the above.
--- NOTE | 2018-07-01 22:30 | ECG ---
Date Performed: 06/30/2018 Time Performed: 08:07:42 PTAGE: 63 years EKG: Sinus rhythm WITH SINUS ARRHYTHMIA NORMAL ECG PREVIOUS TRACING : 04/16/2011 12.04 DOCTOR: Ramón Mann Interpretating Date/Time 07/01/2018 22:22:26
[2018-07-02] MEDS: Insulin NovoLOG Aspart Correctional Sugar Inj SQ SCH ×3 (01:25→13:24)
[2018-07-02] MEDS: Sodium Chloride 0.45 % Inj 1,000 ML IV.CONT SCH ×2 (04:32→10:28)
--- NOTE | 2018-07-02 12:45 | P.DS ---
<Smiley Farooq W - Last Filed: 07/02/18 14:02> Date of admission: 06/30/18 12:11 Primary care physician: Torrey Huitron MD, PhD Attending physician on discharge: Amando Hunt Anticipated date of discharge: 07/02/18 Brief History from admission: Patient is a 63-year-old male with history of hypertension, hyperlipidemia as well as diabetes; presents to the emergency room with complaints of epigastric to right upper quadrant abdominal pain. Patient reports that pain began around 8 PM after he had had 2 whopper sandwiches for dinner. Reports that he has been feeling nauseous with no episodes of vomiting, no constipation or diarrhea. Patient reports that pain has been persistent and unrelenting, nothing makes pain better or worse. Patient with no fever or chills, no chest pain or shortness of breath. CAT scan of the abdomen shows multiple air-fluid levels in the small bowel, patient reports that he has had abdominal surgeries in the past, reports history of colon resection for colon cancer. Patient does carry a history of CA of the colon adenocarcinoma had a partial right colectomy in 2010, also has a history of chronic hep C has been treated in the past and is cured he has had sinus surgery in 2013. Will admit the patient at this time with bowel rest IV fluid and pain medications. And as he will be n.p.o. we will use sliding scale coverage for his diabetes. Patient update on day of discharge: Patient reports feeling much better, had large BM. Looking forward to MA DS: Diagnosis - Discharge Diagnosis (1) Small bowel obstruction Status: Acute DS: Summary Hospital Course: Patient is a 63-year-old male with history of hypertension, hyperlipidemia as well as diabetes; presents to the emergency room with complaints of epigastric to right upper quadrant abdominal pain. Patient reports that pain began around 8 PM after he had had 2 whopper sandwiches and nearly a whole jar of peanuts for dinner. Reported that he has been feeling nauseous with no episodes of vomiting Partial small bowel obstruction CT shows partial small bowel obstruction Abdomen/Pelvis CT 06/30/18 1. Nonspecific distention of multiple mid small bowel loops and stool-like material within the distal distended segment. Multiple air-fluid levels also seen within the distended small bowel loops. There is a smoothly tapered transition zone with the distal small bowel but no abrupt transition point. Differential diagnosis includes partial or early obstruction. 2. Atherosclerotic disease of the aorta. 3. Small amount of free fluid in the pelvis. IV fluid pain meds General surgery, appreciate input. per surgery (07/01) sips of clear liquids as well as sips of magnesium citrate to help with possible peanut impaction in the small bowel. 07/02 patient had large BM diet advanced to reg soft. Patient able to tolerate PO intake will DC home Abdominal pain CT scan shows partial small bowel obstruction-will give IV fluids ,pain control recheck xray Abdomen X-Ray 07/01/18 Negative examination. Diabetes sliding scale with coverage - Time Spent with Patient Total time spent providing and/or coordinating discharge services: Greater than 30 minutes - Quality: VTE Deep Vein Thrombosis/Pulmonary Embolism Present on Admission: No Exam Vital signs: Vital Signs 07/01/18 14:46 07/01/18 20:00 07/02/18 00:00 Temperature 97.2 F L 97.6 F 97.4 F L Pulse Rate 73 60 56 L Respiratory Rate 17 20 20 Blood Pressure 124/71 146/74 H 142/74 H Pulse Oximetry 96 96 98 07/02/18 08:00 07/02/18 12:00 Temperature 97.4 F L 97.4 F L Pulse Rate 54 L 63 Respiratory Rate 17 17 Blood Pressure 144/77 H 143/75 H Pulse Oximetry 98 94 L Intake & Output 07/01/18 07/02/18 07/02/18 18:59 06:59 18:59 Intake Total 1000 / 1000 Balance 1000 / 1000 Weight 78 kg Intake: IV 1000 / 1000 1/2 Normal Saline Inj 1,000 ML 1000 / 1000 @ 75 mls/hr IV.CONT .[id number] [facility] Rx#:[id number] Other: # Voids 1 Narrative: SKIN: Warm and dry. HEAD: Normocephalic. EYES: No scleral icterus. No injection or drainage. NECK: Supple, trachea midline. No JVD or lymphadenopathy. CARDIOVASCULAR: Regular rate and rhythm without murmurs, gallops, or rubs. RESPIRATORY: Breath sounds equal bilaterally. No accessory muscle use. GASTROINTESTINAL: Abdomen rt upper quadrant tenderness no rebound . MUSCULOSKELETAL: No cyanosis, or edema. BACK: Nontender without obvious deformity. No CVA tenderness. Results Procedures completed during hospitalization: None Labs on day of discharge: Labs from last 24 hours 07/02/18 07/02/18 07/02/18 12:21 07:26 06:12 POC Glucose 95 96 81 07/02/18 07/01/18 07/01/18 01:25 17:24 12:45 POC Glucose 83 101 95 - Impressions ITS Impressions Chest X-Ray 06/30/18 07:45 CONCLUSION: COPD Left upper lobe density characteristic of calcification along the first rib. No evidence of acute airspace disease. Gallbladder Ultrasound 06/30/18 07:45 CONCLUSION: No significant or acute abnormality identified. Abdomen/Pelvis CT 06/30/18 09:46 CONCLUSION: 1. Nonspecific distention of multiple mid small bowel loops and stool-like material within the distal distended segment. Multiple air-fluid levels also seen within the distended small bowel loops. There is a smoothly tapered transition zone with the distal small bowel but no abrupt transition point. Differential diagnosis includes partial or early obstruction. 2. Atherosclerotic disease of the aorta. 3. Small amount of free fluid in the pelvis. Abdomen X-Ray 07/01/18 00:00 CONCLUSION: Negative examination. <Amando Hunt - Last Filed: 07/22/18 16:38> Date of admission: 06/30/18 12:11 Primary care physician: Torrey Huitron MD, PhD DS: Diagnosis - Discharge Diagnosis (1) Small bowel obstruction Status: Acute DS: Summary Hospital Course: Patient examined. Assessment and plan formulated with Smiley Farooq PA-C. I agree with the above. - Time Spent with Patient Total time spent providing and/or coordinating discharge services: Results - Impressions ITS Impressions Chest X-Ray 06/30/18 07:45 CONCLUSION: COPD Left upper lobe density characteristic of calcification along the first rib. No evidence of acute airspace disease. Gallbladder Ultrasound 06/30/18 07:45 CONCLUSION: No significant or acute abnormality identified. Abdomen/Pelvis CT 06/30/18 09:46 CONCLUSION: 1. Nonspecific distention of multiple mid small bowel loops and stool-like material within the distal distended segment. Multiple air-fluid levels also seen within the distended small bowel loops. There is a smoothly tapered transition zone with the distal small bowel but no abrupt transition point. Differential diagnosis includes partial or early obstruction. 2. Atherosclerotic disease of the aorta. 3. Small amount of free fluid in the pelvis. Abdomen X-Ray 07/01/18 00:00 CONCLUSION: Negative examination. Discharge Plan - Discharge Order Discharge Orders: Discharge Order (Routine); Ordered 07/02/18 Ordered By: Smiley Farooq - Discharge Details Anticipated Discharge Date: 07/02/18 - Physicians Team Primary Care Provider: Torrey Huitron Attending Provider: Amando Hunt Other Providers: Rich Soriano MD
== END 2018-07-02 17:04 | disposition home or self-care (01) ==
LOC: PHEDA 07:31 → PHED 07:31 → PHEDA 14:20 → N07 14:37 → UNDODISIN 07-01 16:52
PROVIDERS: ADMIT Hospitalist; ATTEND Hospitalist